=== PATIENT | male | born 1945 | race Caucasian/White ===

== ENCOUNTER → 2020-10-21 09:11 | Outpatient (BNVA) | payer MEDICARE, OTHER, SELFPAY | PROVIDERS: PCP Internal Medicine; Visit Provider Urology | DX: N40.0 Benign prostatic hyperplasia without lower urinary tract symptoms (principal); R35.1 Nocturia; R39.12 Poor urinary stream | CPT/HCPCS: 51798; 99212 ==

== ENCOUNTER 2020-11-08 07:19 | Day surgery (SDC) | payer MEDICARE, OTHER, SELFPAY ==
[2020-11-02 11:59] VITALS: BMI 30.7
[2020-11-02 12:02] VITALS: BP 133/72; PULSE 62; RESP 16; O2SAT 99
--- NOTE | 2020-11-02 12:31 | P.CONAN_ITS ---
Documented by User: Florecita Capellanney 11/04/20 14:32 HPI - Anesthesia Eval Consult details Narrative: 75yo M for Laser Ablation Prostate w/Green Light Aortic aneurysms stable per vascular (06/2020). Continue to monitor 6 to 8 months. Stable with cardiology (visit 09/2020) without change in tx. Return to clinic in 6 mo. (Pacer interr on chart) Stable with renal (visit 10/27/20). Baseline creat 1.3. No changes in meds/tx. Return to clinic 6 months. Coumadin for afib PMFSH Active Problems Active Problems: All Active Problems (Updated 11/02/20 @ 12:15 by Jackie García) Nocturia (Acute) BPH (benign prostatic hyperplasia) (Acute) Weak urinary stream (Acute) Past Medical History Medical History Atrial fibrillation BPH (benign prostatic hyperplasia) GERD (gastroesophageal reflux disease) Hx of kidney disease Hx of peripheral vascular disease Nocturia BERNABE treated with BiPAP Pacemaker Weak urinary stream Wears hearing aid in both ears Family History Family history of problems with anesthesia: No Surgical History Surgical History History of bronchoscopy History of esophagogastroduodenoscopy (EGD) Hx of appendectomy Hx of cholecystectomy Hx of colonoscopy History of Problems with Anesthesia: No Social History Social History Patient Tobacco Use Status: Former Tobacco user Quit Date: Tobacco use type: Cigar Use of substances other than those prescribed or required for medical reasons: No Are you DNR?: No Advance Directives: No Advance Directives Information Provided: No Advance Directives on File: No Narrative Narrative: No recent illness. >4 mets with 3 flights of stairs regularly Meds Allergies Allergy/AdvReac Type Severity Reaction Status Date / Time rivaroxaban [Xarelto] Allergy Unknown Unknown Verified 11/08/20 08:01 adhesive tape Allergy Intermediate Rash Uncoded 11/08/20 08:01 Home Medications Medication Instructions Recorded Confirmed Last Taken Type atorvastatin 10 mg tablet 10 mg PO DAILY 10/21/20 11/02/20 Unknown History fluticasone propionate 50 1 spray INTRANASAL BID PRN 10/21/20 11/02/20 Unknown History mcg/actuation nasal spray,suspension omeprazole 20 mg capsule,delayed 20 mg PO BID 10/21/20 11/02/20 11/08/20 06:00 History release warfarin 5 mg tablet 5 mg PO 5XW 10/21/20 11/02/20 10/31/20 20:00 History amlodipine 2.5 mg PO DAILY 11/02/20 11/02/20 Unknown History loratadine 10 mg PO DAILY 11/02/20 11/02/20 11/08/20 06:00 History metoprolol succinate 50 mg PO DAILY 11/02/20 11/02/20 11/08/20 06:00 History tamsulosin 0.4 mg PO BID 11/02/20 11/02/20 Unknown History warfarin 7.5 mg PO 2XW 11/02/20 11/02/20 Unknown History Exam Exam Date and Time: November 02, 2020 1231 Height,Weight and Vital Signs: Height 5 ft 11 in Weight 99.79 kg Last Vital Signs Pulse 62 11/02/20 12:02 Resp 16 11/02/20 12:02 BP 133/72 11/02/20 12:02 Pulse Ox 99 11/02/20 12:02 Pertinent Lab Results Pertinent Lab Results: 10/22/20 CMP: All WNL CBC: WBC 4.2, Hgb 13.7, Hct 41.7, Plt 135 (L) Narrative Narrative: EKG 11/2019 A-paced with Prolonged AV conduction No change from 07/2019 Pacer Interr 07/2020 (report on chart) Biotronik dual chamber pacer Mode: DDD - 60 Leads and device functioning appropriately. No VHR recorded. No AMS episodes Vpaced 1%, A paced 79% Battery longevity stable. Assessment and Plan Assessment Anesthesia Assessment: Anesthesia Plan Discussed and PAT Visit Documented by User: Shannon Ramirez 11/08/20 09:03 [facility] Past Medical History Medical History Atrial fibrillation BPH (benign prostatic hyperplasia) GERD (gastroesophageal reflux disease) Hx of kidney disease Hx of peripheral vascular disease Nocturia BERNABE treated with BiPAP Pacemaker Weak urinary stream Wears hearing aid in both ears Surgical History Surgical History History of bronchoscopy History of esophagogastroduodenoscopy (EGD) Hx of appendectomy Hx of cholecystectomy Hx of colonoscopy Social History Social History Patient Tobacco Use Status: Former Tobacco user Quit Date: Tobacco use type: Cigar Use of substances other than those prescribed or required for medical reasons: No Are you DNR?: No Advance Directives: No Advance Directives Information Provided: No Advance Directives on File: No Meds Allergies Allergy/AdvReac Type Severity Reaction Status Date / Time rivaroxaban [Xarelto] Allergy Unknown Unknown Verified 11/08/20 08:01 adhesive tape Allergy Intermediate Rash Uncoded 11/08/20 08:01 Home Medications Medication Instructions Recorded Confirmed Last Taken Type atorvastatin 10 mg tablet 10 mg PO DAILY 10/21/20 11/02/20 Unknown History fluticasone propionate 50 1 spray INTRANASAL BID PRN 10/21/20 11/02/20 Unknown History mcg/actuation nasal spray,suspension omeprazole 20 mg capsule,delayed 20 mg PO BID 10/21/20 11/02/20 11/08/20 06:00 History release warfarin 5 mg tablet 5 mg PO 5XW 10/21/20 11/02/20 10/31/20 20:00 History amlodipine 2.5 mg PO DAILY 11/02/20 11/02/20 Unknown History loratadine 10 mg PO DAILY 11/02/20 11/02/20 11/08/20 06:00 History metoprolol succinate 50 mg PO DAILY 11/02/20 11/02/20 11/08/20 06:00 History tamsulosin 0.4 mg PO BID 11/02/20 11/02/20 Unknown History warfarin 7.5 mg PO 2XW 11/02/20 11/02/20 Unknown History Exam Height,Weight and Vital Signs: Vital Signs Temp Pulse Resp BP Pulse Ox 11/08/20 08:01 97.1 F 68 18 129/93 H 96 Pertinent Lab Results Pertinent Lab Results: 11/08/20 EKG: Unusual P axis? extopic atrial rhythm with 2nd degree AV block. Premature supraventricular complexes. Rate 81 Lab Results 11/08/20 Range/Units 07:32 PT 12.8 (10.8-13.0) SEC INR 1.1 (0.9-1.1) Airway Mallampati Class: II TM Dist: >3cm Neck ROM: Full Heart: RRR Lungs: CTAB Assessment and Plan Assessment Anesthesia Assessment: Anesthesia Plan Discussed and Chart Reviewed Final Anesthetic Review NPO: Yes ASA Class: III Final Preanesthetic Review: No Changes in Pt Med Stat, Meds/Allgs Chart Reviewed, Consent Obtained/Reviewed and Anes Risks/Benef Reviewed Patient Risk: Intermediate Procedure Risk: Low Assessment/Block/Sedation in SS: Assess/Block/Sedation-SS Anesthetic Plan Anesthetic Plan: GA Disposition: Standard PACU
[2020-11-08] VITALS (7 sets, daily range): BP systolic 101–129; BP diastolic 63–93; PULSE 61–68; RESP 16–18; TEMP 36.1–36.2; O2SAT 94–96
--- NOTE | 2020-11-08 | ECG_ITS ---
Test Reason : PREOP Blood Pressure : / mmHG Vent. Rate : 081 BPM Atrial Rate : 085 BPM P-R Int : 146 ms QRS Dur : 094 ms QT Int : 386 ms P-R-T Axes : 181 -01 021 degrees QTc Int : 448 ms Unusual P axis, possible ectopic atrial rhythm with Premature supraventricular complexes competing with sinus rhythm (last 2 beats) Abnormal ECG No previous ECGs available Referred By: Florecita Salcedo Electronically Signed By:Al Lassiter
--- NOTE | 2020-11-08 07:36 | MHC.SHP ---
Pre-Procedural Eval Section A The patient is an INPATIENT: No Changes since office visit: No Cold of Flu in the past 2 weeks, No New Medical Problems, No Changes in Medication and No Patient answered all questions The History & Physical has been completed within 30 days and I have reviewed it.: Yes Section B Chief Complaint: benign prostate hyperplasia Allergies: Allergies Allergy/AdvReac Type Severity Reaction Status Date / Time rivaroxaban [Xarelto] Allergy Unknown Unknown Verified 11/02/20 12:18 adhesive tape Allergy Unknown Rash Uncoded 11/02/20 12:18 Plan Diagnosis/Plan: Unchanged (laser prostatectomy) I have reviewed the history and physical and performed a pertinent physical examination on my patient. No changes have occurred unless specified.
[2020-11-08 07:44] LABS: INTERNATIONAL NORM RATIO 1.1 (0.9-1.1); Prothrombin Time 12.8 SEC (10.8-13.0)
[2020-11-08] MEDS: levoFLOXacin 500 MG TABLET PO (08:19)
[2020-11-08] MEDS: 0.9 % Sodium Chloride 1,000 ML 100 ML IVCONT (08:45)
--- NOTE | 2020-11-08 09:24 | W.PM.OPN ---
Operative Note Operative Note Date of Service: 11/08/20 Narrative: PreOperative Diagnosis: Bladder outlet obstruction Post Operative Diagnosis: Bladder outlet obstruction Procedure: GreenLight laser enucleation of the prostate Surgeon: Dr Antony Rubio Anesthesia: General Indications for procedure: History of bladder outlet obstruction. Treated with alpha-rocio and other medications. Persistent symptoms. Cystoscopy revealed bilobar i encroachment. Recommendation for laser procedure of the prostate. Procedure: After informed consent was verified the patient was brought to the operating room and placed in a supine position. Anesthesia was administered per protocol. Patient was placed in modified dorsal lithotomy position and prepped and draped in a sterile fashion. Safety pause time-out was confirmed. Antibiotics have been given. Twenty-four Ugandan laser cystoscope was inserted per urethra. No abnormalities found the anterior posterior urethra. The bladder was filled on both ureteric orifices were seen in normal position away from our area of interest. Using a GreenLight laser settings of 80 w incisions were made at the 5 and 7 o'clock position. They were taken down and then laterally on each side. They were brought from the bladder neck down to the level of the veru. These defined the lateral aspects of the median lobe area. The median lobe was ablated and enucleated tissue removed. Once the median lobe area had been cleaned attention was directed to the lateral lobes. We started with the patient's left lateral lobe. Firstly the 05:00 o'clock groove was further developed. This was moved in the lateral position to undermine the tissue on the lateral side. Gradually we worked our way up the sidewall. There was not extensive tissue on the lateral aspect so we did not need to make multiple incisions. A similar procedure was repeated on the patient's right-hand side. When this was completed debris and pieces of prostate removed from the bladder. Both ureteric orifices were reviewed again in shown to be patent in away from any areas of energy damage. The apical area was reviewed in any stray ooze was controlled. A 22 Ugandan 30 cc balloon Garcia catheter was placed over stylet into the bladder. Clear efflux was obtained. 30 cc was placed in the balloon and gentle traction was placed. A snap was used to hold tension once the patient will be moved and transported. Once transportation its finish this novel be removed. A belladonna and opiate suppository was placed for postprocedure pain management. He tolerated procedure well was extubated in the operating and transferred in a stable condition to the recovery area. Total of 80,000 joules of energy. 10 minutes 46 seconds of lasing time Pathology: - Drains: Garcia catheter
== END 2020-11-08 10:45 | disposition home or self-care (01) ==
PROVIDERS: Nurse Practitioner; PCP Internal Medicine; Visit Provider Urology
PROC: (CPT 52648; principal; 2020-11-08 09:00)
DX: N40.1 Benign prostatic hyperplasia with lower urinary tract symptoms (principal); N13.8 Other obstructive and reflux uropathy; R39.12 Poor urinary stream; R35.1 Nocturia; I48.91 Unspecified atrial fibrillation; G47.33 Obstructive sleep apnea (adult) (pediatric); Z95.0 Presence of cardiac pacemaker; Z90.49 Acquired absence of other specified parts of digestive tract; Z87.891 Personal history of nicotine dependence; Z79.51 Long term (current) use of inhaled steroids; Z79.01 Long term (current) use of anticoagulants; Z79.899 Other long term (current) drug therapy
CPT/HCPCS: 52648; 36415; 85610; 93005; J2405; J3010

== ENCOUNTER → 2020-11-12 09:23 | Outpatient (BNVA) | payer MEDICARE, OTHER, SELFPAY | PROVIDERS: PCP Internal Medicine; Visit Provider Urology | DX: N40.0 Benign prostatic hyperplasia without lower urinary tract symptoms (principal) | CPT/HCPCS: 51700; 51798; 99212 ==

== ENCOUNTER → 2020-12-29 09:36 | Outpatient (BNVA) | payer MEDICARE, OTHER, SELFPAY | PROVIDERS: PCP Internal Medicine; Visit Provider Urology | DX: N40.1 Benign prostatic hyperplasia with lower urinary tract symptoms (principal); R35.1 Nocturia | CPT/HCPCS: 51798; 99212 ==

== ENCOUNTER 2023-04-25 14:58 | Outpatient (AMB) | payer MEDICARE, OTHER, SELFPAY ==
--- NOTE | 2023-04-25 15:01 | HO.NEPHOV ---
HPI HPI Comments History of Present Illness Details I had the privilege of seeing Arben in the office, accompanied by his , for chronic kidney disease and hypertension. His atrial fibrillation is reasonably well controlled on sotalol. He had cardioversion in the past. He closely follows up with Dr. Centeno for his aortic aneurysm. He sees Dr. Maria or is a iliac artery aneurysm. He is going to have an inguinal hernia on the right operated soon. He has no blood in the urine, edema or any urinary symptoms. His blood pressure has been well controlled. He does not take any nonsteroidal anti-inflammatory medications. He denies chest pain, shortness of breath, proximal nocturnal dyspnea, orthopnea, pedal edema or orthostatic symptoms. His blood pressure is currently well controlled on amlodipine and sotalol which he takes for his AFib. He had no other active complaints at the time of this office visit [facility] Medical History Atrial fibrillation BPH (benign prostatic hyperplasia) GERD (gastroesophageal reflux disease) Hx of kidney disease Hx of peripheral vascular disease Nocturia BERNABE treated with BiPAP Pacemaker Weak urinary stream Wears hearing aid in both ears Surgical History History of bronchoscopy History of esophagogastroduodenoscopy (EGD) Hx of colonoscopy Hx of appendectomy Hx of cholecystectomy Social History Patient Tobacco Use Status: Former Tobacco user Quit Date: Tobacco use type: Cigar Vital Signs 04/25/23 15:02 Height 6 ft Weight 226 lb 6 oz BMI 30.7 BP 112/80 Position Sitting Pulse 79 Pulse Source Pulse Oximeter Pulse Oximetry (%) 97 Oxygen Delivery Method Room Air Physical Exam Vital Signs: Last Vital Signs Pulse 79 04/25/23 15:02 BP 112/80 04/25/23 15:02 Pulse Ox 97 04/25/23 15:02 Oxygen Delivery Method Room Air 04/25/23 15:02 BMI result Body Mass Index 30.7 Const General: comfortable and no acute distress Orientation/consciousness: patient oriented x3 HEENT Head: Yes normocephalic Mouth: Normal oral and palatal mucosa present Eyes EOM: EOMs intact bilaterally Neck Neck: Yes supple Resp Auscultation: clear to auscultation bilaterally Cardio Jugular venous distension: no JVD Rate: regular rate GI Palpation (GI): Soft to palpation Auscultation: normal bowel sounds General: Yes no CVA tenderness Back/Spine/Pelvis Back: no CVA tenderness Skin General skin exam: no rashes or lesions noted Neuro General: patient oriented x3 and moves all extremities Extrem General: Yes no pedal edema Assessment & Plan Assessment & Plan (1) CKD (chronic kidney disease) stage 2, GFR 60-89 ml/min: Code(s): N18.2 - Chronic kidney disease, stage 2 (mild) (2) Renal stone: Code(s): N20.0 - Calculus of kidney Plan Arben has very mild CKD. He had history of renal infarction. He is on anticoagulation. He has history of atrial fibrillation and had undergone cardioversion in the past and is maintained on sotalol. His blood pressure is at goal. His renal functions are at baseline. He has unilateral renal stones. He does not have any hematuria. His uric acid has been 6.1. He has prostate issues and is maintained on tamsulosin. He is on statins which is tolerating well. There is no reservation for him to have his inguinal hernia operated. He closely follows up with Dr. Centeno and Dr. Maria. I did not make any medication changes. He maintains good hydration. He should cut back salt in the diet and animal protein. I ordered 24 hour urine collection for stone workup . All questions were answered. I may consider switching his amlodipine to hydrochlorothiazide at the next visit given nephrolithiasis. Follow-up given. Orders: Orders Calcium, 24 Hr Ur Today N18.2 - Chronic kidney disease, stage 2 (mild), N20.0 - Calculus of kidney Uric Acid, 24Hr Urine Group Today N18.2 - Chronic kidney disease, stage 2 (mild), N20.0 - Calculus of kidney Citric Acid 24hr Urine Today N18.2 - Chronic kidney disease, stage 2 (mild), N20.0 - Calculus of kidney Uric Acid Today N18.2 - Chronic kidney disease, stage 2 (mild), N20.0 - Calculus of kidney Sodium, 24Hr Urine Group Today N18.2 - Chronic kidney disease, stage 2 (mild), N20.0 - Calculus of kidney Oxalate, 24 Hr Today N18.2 - Chronic kidney disease, stage 2 (mild), N20.0 - Calculus of kidney Electrolytes Today N18.2 - Chronic kidney disease, stage 2 (mild), N20.0 - Calculus of kidney Blood Urea Nitrogen Today N18.2 - Chronic kidney disease, stage 2 (mild), N20.0 - Calculus of kidney Creatinine Today N18.2 - Chronic kidney disease, stage 2 (mild), N20.0 - Calculus of kidney Coding Level of Care Code Est Pt Level 4 (68315) Diagnoses CKD (chronic kidney disease) stage 2, GFR 60-89 ml/min N18.2 Renal stone N20.0 Results Reviewed Nephrology Results: No Data to Display
[2023-04-25 15:02] VITALS: BP 112/80; PULSE 79; O2SAT 97; BMI 30.7
== END 2023-04-25 15:49 | disposition home or self-care (01) ==
PROVIDERS: PCP Internal Medicine; Visit Provider Internal Medicine Nephrology
DX: N18.2 Chronic kidney disease, stage 2 (mild) (principal); N20.0 Calculus of kidney
CPT/HCPCS: 99214

== ENCOUNTER → 2023-04-25 14:58 | Outpatient (BNVA) | payer MEDICARE, OTHER, SELFPAY | PROVIDERS: PCP Internal Medicine; Visit Provider Internal Medicine Nephrology | DX: N18.2 Chronic kidney disease, stage 2 (mild) (principal); N20.0 Calculus of kidney | CPT/HCPCS: 99212 ==

== ENCOUNTER 2024-02-27 09:27 | Outpatient (AMB) | payer MEDICARE, OTHER, SELFPAY ==
--- NOTE | 2024-02-27 09:36 | HO.NEPHOV ---
Vital Signs 02/27/24 09:38 Height 6 ft Weight 232 lb 8 oz BMI 31.5 BP 132/82 Blood Pressure Location Lt brachial Position Sitting Pulse 63 Pulse Source Pulse Oximeter Pulse Oximetry (%) 99 Oxygen Delivery Method Room Air Intake Visit Reasons: 10M follow up- [facility] Required: No Accompanied by: Spouse Allergies rivaroxaban [Xarelto] Allergy (Unknown, Verified 02/27/24 09:39) Unknown adhesive tape Allergy (Intermediate, Uncoded 11/08/20 08:01) Rash HPI Comments Details: Arben was seen in the office for mild chronic kidney disease and hypertension. His atrial fibrillation is reasonably well controlled on sotalol. He had cardioversion in the past. He closely follows up with Dr. Centeno for his aortic aneurysm. He sees Dr. Maria or is a iliac artery aneurysm. He has no blood in the urine, edema or any urinary symptoms. His blood pressure has been well controlled. He does not take any nonsteroidal anti-inflammatory medications. He denies chest pain, shortness of breath, proximal nocturnal dyspnea, orthopnea, pedal edema or orthostatic symptoms. His blood pressure is currently well controlled on amlodipine and sotalol which he takes for his AFib. He had no other active complaints at the time of this office visit [facility] Medical History Atrial fibrillation BPH (benign prostatic hyperplasia) GERD (gastroesophageal reflux disease) Hx of kidney disease Hx of peripheral vascular disease Nocturia BERNABE treated with BiPAP Pacemaker Weak urinary stream Wears hearing aid in both ears Surgical History History of bronchoscopy History of esophagogastroduodenoscopy (EGD) Hx of colonoscopy Hx of appendectomy Hx of cholecystectomy Social History Patient Tobacco Use Status: Former Tobacco user Tobacco use type: Cigar Review of Systems Const All systems reviewed & are unremarkable except as noted in HPI and below Physical Exam Const General: comfortable and no acute distress Orientation/consciousness: patient oriented x3 HEENT Head: Yes normocephalic Mouth: Normal oral and palatal mucosa present Eyes EOM: EOMs intact bilaterally Neck Neck: Yes supple Resp Auscultation: clear to auscultation bilaterally Cardio Jugular venous distension: no JVD Rate: regular rate GI Palpation (GI): Soft to palpation Auscultation: normal bowel sounds General: Yes no CVA tenderness Back/Spine/Pelvis Back: no CVA tenderness Skin General skin exam: no rashes or lesions noted Neuro General: patient oriented x3 and moves all extremities Extrem General: Yes no pedal edema Results Reviewed Nephrology Results: No Data to Display Assessment & Plan Assessment & Plan (1) CKD (chronic kidney disease) stage 2, GFR 60-89 ml/min: Code(s): N18.2 - Chronic kidney disease, stage 2 (mild) Category: Medical (2) Renal stone: Code(s): N20.0 - Calculus of kidney Category: Medical Plan Arben has very mild CKD. He had history of renal infarction. He is on anticoagulation. He has history of atrial fibrillation and had undergone cardioversion in the past and is maintained on sotalol. His blood pressure is at goal. His renal functions are at baseline. He has unilateral renal stones. He does not have any hematuria. His uric acid has been 6.1. He has prostate issues and is maintained on tamsulosin. He is on statins which is tolerating well. There is no reservation for him to have his inguinal hernia operated. He closely follows up with Dr. Centeno and Dr. Maria. I did not make any medication changes. He maintains good hydration. He should cut back salt in the diet and animal protein. All questions were answered. I may consider switching his amlodipine to hydrochlorothiazide with time given stones. Follow-up given. Orders: Orders Blood Urea Nitrogen 1 Year N18.2 - Chronic kidney disease, stage 2 (mild), N20.0 - Calculus of kidney Electrolytes 1 Year N18.2 - Chronic kidney disease, stage 2 (mild), N20.0 - Calculus of kidney Creatinine 1 Year N18.2 - Chronic kidney disease, stage 2 (mild), N20.0 - Calculus of kidney Calcium 1 Year N18.2 - Chronic kidney disease, stage 2 (mild), N20.0 - Calculus of kidney Coding Level of Care Code Est Pt Level 4 (84012) Diagnoses CKD (chronic kidney disease) stage 2, GFR 60-89 ml/min N18.2 Renal stone N20.0
[2024-02-27 09:38] VITALS: BP 132/82; PULSE 63; O2SAT 99; BMI 31.5
== END 2024-02-27 09:53 | disposition home or self-care (01) ==
PROVIDERS: PCP Internal Medicine; Visit Provider Internal Medicine Nephrology
DX: I12.9 Hypertensive chronic kidney disease with stage 1 through stage 4 chronic kidney disease, or unspecified chronic kidney disease (principal); N18.2 Chronic kidney disease, stage 2 (mild); N20.0 Calculus of kidney
CPT/HCPCS: 99214

== ENCOUNTER → 2024-02-27 09:27 | Outpatient (BNVA) | payer MEDICARE, OTHER, SELFPAY | PROVIDERS: PCP Internal Medicine; Visit Provider Internal Medicine Nephrology | DX: I12.9 Hypertensive chronic kidney disease with stage 1 through stage 4 chronic kidney disease, or unspecified chronic kidney disease (principal); N18.2 Chronic kidney disease, stage 2 (mild); I48.91 Unspecified atrial fibrillation; N20.0 Calculus of kidney; Z79.01 Long term (current) use of anticoagulants | CPT/HCPCS: 99212 ==

== ENCOUNTER 2025-02-20 10:06 | Outpatient (AMB) | payer MEDICARE, OTHER, SELFPAY ==
--- NOTE | 2025-02-20 10:06 | HO.NEPHOV_ITS ---
Vital Signs 02/20/25 10:12 Height 6 ft Weight 219 lb 4 oz BMI 29.7 BP 110/70 Blood Pressure Location Lt brachial Position Sitting Pulse 66 Pulse Source Pulse Oximeter Pulse Oximetry (%) 98 Oxygen Delivery Method Room Air Intake Visit Reasons: CKD-Conf Long Winder Tender Required: No Accompanied by: Spouse Allergies rivaroxaban (Xarelto) Allergy (Unknown, Verified 02/20/25 10:11) Unknown adhesive tape Allergy (Intermediate, Uncoded 11/08/20 08:01) Rash HPI Comments Details: Arben was seen in the office for mild chronic kidney disease and hypertension. His atrial fibrillation is reasonably well controlled on sotalol. He had cardioversion in the past. He closely follows up with Dr. Centeno for his aortic aneurysm. He sees Dr. Maria or is a iliac artery aneurysm. He has no blood in the urine, edema or any urinary symptoms. His blood pressure has been well controlled. He does not take any nonsteroidal anti-inflammatory medications. He denies chest pain, shortness of breath, proximal nocturnal dyspnea, orthopnea, pedal edema or orthostatic symptoms. His blood pressure is currently well controlled on amlodipine and sotalol which he takes for his AFib. He has a diagnosis of pancreatic cancer and is going to undergo Whipples surgey in 2 weeks. He had no other active complaints at the time of this office visit [facility] Medical History Atrial fibrillation BPH (benign prostatic hyperplasia) GERD (gastroesophageal reflux disease) Hx of kidney disease Hx of peripheral vascular disease Nocturia BERNABE treated with BiPAP Pacemaker Weak urinary stream Wears hearing aid in both ears Surgical History History of bronchoscopy History of esophagogastroduodenoscopy (EGD) Hx of colonoscopy Hx of appendectomy Hx of cholecystectomy Social History Patient Tobacco Use Status: Former Tobacco user Tobacco use type: Cigar Review of Systems Const All systems reviewed & are unremarkable except as noted in HPI and below Physical Exam Vital Signs: Last Vital Signs Pulse 66 02/20/25 10:12 BP 110/70 02/20/25 10:12 Pulse Ox 98 02/20/25 10:12 Oxygen Delivery Method Room Air 02/20/25 10:12 BMI result Body Mass Index 29.7 Const General: comfortable and no acute distress Orientation/consciousness: patient oriented x3 HEENT Head: Yes normocephalic Mouth: Normal oral and palatal mucosa present Eyes EOM: EOMs intact bilaterally Neck Neck: Yes supple Resp Auscultation: clear to auscultation bilaterally Cardio Jugular venous distension: no JVD Rate: regular rate GI Palpation (GI): Soft to palpation Auscultation: normal bowel sounds General: Yes no CVA tenderness Back/Spine/Pelvis Back: no CVA tenderness Skin General skin exam: no rashes or lesions noted Neuro General: patient oriented x3 and moves all extremities Extrem General: Yes no pedal edema Assessment & Plan Assessment & Plan (1) CKD (chronic kidney disease) stage 2, GFR 60-89 ml/min: Code(s): N18.2 - Chronic kidney disease, stage 2 (mild) Category: Medical (2) Renal stone: Code(s): N20.0 - Calculus of kidney Category: Medical Plan Arben has very mild CKD. He had history of renal infarction. He is on anticoagulation. He has history of atrial fibrillation and had undergone cardioversion in the past and is maintained on sotalol. His blood pressure is at goal. His renal functions are at baseline. He has H/O unilateral renal stones. He does not have any hematuria. He is on statins which is tolerating well. He closely follows up with Dr. Centeno and Dr. Maria. I did not make any medication changes. He maintains good hydration. He should cut back salt in the diet and animal protein. All questions were answered. I may consider switching his amlodipine to hydrochlorothiazide with time given stones. Follow- up given. Orders: Orders Protein Creatinine Ratio, Ur 1 Year N18.2 - Chronic kidney disease, stage 2 (mild), N20.0 - Calculus of kidney Electrolytes 1 Year N18.2 - Chronic kidney disease, stage 2 (mild), N20.0 - Calculus of kidney Creatinine 1 Year N18.2 - Chronic kidney disease, stage 2 (mild), N20.0 - Calculus of kidney Calcium 1 Year N18.2 - Chronic kidney disease, stage 2 (mild), N20.0 - Calculus of kidney Uric Acid 1 Year N18.2 - Chronic kidney disease, stage 2 (mild), N20.0 - Calculus of kidney Blood Urea Nitrogen 1 Year N18.2 - Chronic kidney disease, stage 2 (mild), N20.0 - Calculus of kidney Coding Level of Care Code Est Pt Level 4 (97097) Diagnoses CKD (chronic kidney disease) stage 2, GFR 60-89 ml/min N18.2 Renal stone N20.0
[2025-02-20 10:12] VITALS: BP 110/70; PULSE 66; O2SAT 98; BMI 29.7
--- OUTSIDE RECORDS SUMMARY | 2025-02-20 10:56 | XMS_ITS | Patient Health Record ---
Author Organization [facility] Address [address] [place] [address] Care Team Providers Care Social Work Program Coordinator Name Role Phone Baylee JAY, Farideh Primary Care Provider Napoleon Byrne MD, Hussein Unavailable Reason For Referral No Information Medications Medication SIG (Take, Route, Frequency, Duration) Notes Start Date End Date Status Atenolol *Please review a nd pick correct strength-formulation from [facility] options. If intended option is not shown, discontinue and re-order from Quick Search* Active RANITIDINE *Please review f or potential replacement for e-prescription and drug interaction check* Active Plan Of Treatment No Information Insurance Providers Payer Name Payer Address Payer Phone Subscriber Number Group Number Insured Name Patient Relationship to Insured Coverage Start Date Coverage End Date [facility] [address] [place] [address] [phone] [id number] Arben Mustafa Self - patient is the insured Medical (General) History Medical History History ICD Code hypertension acid reflux
--- OUTSIDE RECORDS SUMMARY | 2025-02-20 10:56 | XMS_ITS | Patient Health Record ---
Author Organization [facility] cassie Hancock Address [address] [place] [address] Care Team Providers Care Butcher Supervisor Name Role Phone Ismael Dickey MD Primary Care Provider Kiesha Acosta Unavailable [phone] Allergies Allergen (clinical drug ingredient) Drug/Non Drug Allergy documented on EMR Reaction Allergy Type Onset Date Status Adhesive Unknown Allergy Active Reason For Referral No Information Medications Medication SIG (Take, Route, Frequency, Duration) Notes Start Date End Date Status Warfarin Sodium 5 MG as directed Active Tamsulosin HCl Unkno wn Sotalol HCl Unknown Omeprazole 20 MG as directed Orally t wice a day Active Atorvastatin Calcium 10 MG as directed Active Claritin 10 MG as directed Act rob amLODIPine Besylate 2.5 MG 1 tablet Oral ly Once a day Active Social History Tobacco Use: Social History Observation Description Date Details (start date - stop date) Former Smoker NA - NA Tobacco Use/Smoking Question Answer Notes Are you a: former smoker Additional Findings: Tobacco Non-User Current no n-smoker Alcohol Screen Question Answer Notes Did you have a drink containing alcohol in the p ast year? No Points 0 Interpretation Negative Tobacco use other than smoking: Question Answer Notes Are you an other tobacco user? No Problems Problem Type SNOMED Code ICD Code Onset Dates Problem Status W/U Status Risk Notes Problem Tinea unguium (552852768) Tinea unguium (B35.1) Active confirmed Plan Of Treatment No Information Insurance Providers Payer Name Payer Address Payer Phone Subscriber Number Group Number Insured Name Patient Relationship to Insured Coverage Start Date Coverage End Date Medicare [employer] [address] [place] [address] [id number] Arben Mustafa Self - patient is the insured [facility] [employer] [address] [place] [address] [id number] Arben Mustafa Self - patient is the insured Medical (General) History Medical History History ICD Code Gall bladder problems Kidney disease Reflux Stroke Measles Mumps Chicken pox covid-19 High blood pressure Surgical History Surgery Date(Month/Year) liver abcess 1976 gall stones 1988
--- OUTSIDE RECORDS SUMMARY | 2025-02-20 10:56 | XMS_ITS | Patient Health Record ---
Author Organization [facility] Address [address] [place] [address] Care Team Providers Care Guidance Counselor Name Role Phone Koffi Nobles Primary Care Provider Adelita Ferrer Unavailable [phone] Reason For Referral No Information Plan Of Treatment No Information Insurance Providers Payer Name Payer Address Payer Phone Subscriber Number Group Number Insured Name Patient Relationship to Insured Coverage Start Date Coverage End Date [facility] [address] [place] [address] [id number] ANA LAURA CURIEL Self - patient is the insured
--- OUTSIDE RECORDS SUMMARY | 2025-02-20 10:56 | XMS_ITS | Clinical Summary ---
Author Organization [facility] [address] [place] [address] Phone Care Team Providers Care Restaurant Busser Name Role Phone Ismael Dickey MD Primary Care Provider [phone] Allergies Active Allergy Reactions Criticality Noted Date Comments Adhesive Tape Other (see comments) 10/27/2020 Medications albuterol HFA (PROVENTIL HFA;VENTOLIN HFA) 108 (90 Base) MCG/ACT inhaler 2 puffs by Other route if needed Active amLODIPine (NORVASC) 2.5 MG tablet Take 1 tablet by mouth 1 (one) time each day Active atorvastatin (LIPITOR) 10 MG tablet Take 1 tablet by mouth 1 (one) time each day Active fluticasone (FLONASE) 50 MCG/ACT nasal spray Administer 1 spray into each nostril 1 (one) time each day Active omeprazole OTC (PriLOSEC OTC) 20 MG EC tablet Take 1 tablet by mouth 1 (one) time each day Active warfarin (COUMADIN) 5 MG tablet Take 1 tablet by mouth 1 (one) time each day Active omeprazole (PriLOSEC) [address] capsule Take 1 capsule by mouth 1 (one) time each day Active sotalol (BETAPACE) 80 MG tablet Take 80 mg by mouth 2 (two) times a day Active loratadine (CLARITIN) 10 MG tablet Take 10 mg by mouth 1 (one) time each day Active triamcinolone (KENALOG) 0.025 % cream Apply topically if needed Active Active Problems Problem Noted Date Diagnosed Date Anemia 06/07/2021 Stage 3a chronic kidney disease 10/27/2020 Hypertension 11/14/2017 Resolved Problems Problem Noted Date Diagnosed Date Resolved Date Abdominal aortic aneurysm 06/07/2021 Allergic rhinitis 06/07/2021 06/07/2021 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 Benign prostatic hyperplasia 06/07/2021 06/07/2021 Overview (06/07/2021): Status post green laser surgery October 2020. Body mass index 25-29 - overweight 06/07/2021 06/07/2021 Bronchospasm 06/07/2021 06/07/2021 Difficulty passing urine 06/07/2021 Inflammatory dermatosis 06/07/202105/21 Eczema 06/07/2021 06/07/2021 H/O: kidney disease 06/07/2021 06/07/19 Overview (06/07/2021): L infarct History of colonoscopy 06/07/202106/07 Overview (06/07/2021): 2017; repeat ; repeat 2020 Internal hemorrhoids 06/07/2021 022 Overview (06/07/2021): colo 2011 Lipoma 06/07/2021 06/07/2021 Liver function tests outside reference range 2 06/07/2021 Lumbar radiculopathy 06/07/2021 022 Mild persistent asthma 06/07/202106/07 Obese class I 06/07/2021 06/07/2021 Obstructive sleep apnea syndrome 06/07/2021 06/07/2021 Pain in thumb 06/07/2021 06/07/2021 Platelet count below reference range 06/07/2021 06/07/2021 Retinal disorder 06/07/2021 06/07/2021 Overview (06/07/2021): 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 Thyroid hormone tests outside reference range 06/07/19 22 06/07/2021 Transient global amnesia 06/07/2021 Tremor 06/07/2021 06/07/2021 Vasovagal symptom 06/07/2021 06/07/2021 Ventricular premature complex 06/07/2021 06/07/2021 Hyperlipidemia 11/08/2016 06/07/2021 Cardiac pacemaker in situ 08/13/2015 Venous retinal branch occlusion 03/06/2013 06/07/2021 Overview (10/27/2020): Venous retinal branch occlusion Gastroesophageal reflux disease 11/14/2012 06/07/2021 Overview (10/27/2020): Gastroesophageal reflux disease Irregular heart beat 11/14/2012 022 Overview (10/27/2020): irregular heartbeat Immunizations Immunization Administration Dates Next Due Influenza Whole 02/14/2021,12/23/2019,03/14/2019 Pfizer SARS-COV-2 02/21/2021,06/24/2020,06/03/19 21 Pneumococcal Conjugate 13-Valent 01/20/2016,09/0 05/2015 Pneumococcal Polysaccharide 02/05/2012 Shingrix 10/01/2017,08/03/2017 Tdap 11/01/2015,12/19/2010 Zoster 04/09/2012,10/31/2005 Family History Medical History Relation Comments Heart disease Father Relation Status Comments Father Mother Social History Tobacco Use Types Packs/Day Years Used Date Smoking Tobacco: Never Smokeless Tobacco: Never Tobacco Cessation:Counseling Given: Not Answered Alcohol Use Standard Drinks/Week Comments Yes 0 (1 standard drink = 0.6 oz pure alcohol) Alcoholic Drinks/day: Occasional social drink Sex and Gender Information Value Date Recorded Sex Assigned at Not on file Legal Sex Male 4:46 PM EST Gender Identity Not on file Sexual Orientation Not on file Last Filed Vital Signs Vital Sign Reading Time Taken Comments Blood Pressure 110/80 04/26/2022 1:34 PM EST Pulse 82 04/26/2022 1:34 PM EST Temperature - - Respiratory Rate - - Oxygen Saturation 98% 04/22/2021 2:16 PM EST Inhaled Oxygen Concentration - - Weight 102 kg (225 lb) 04/26/2022 1:34 PM EST Height 182.9 cm (6') 03/26/2020 12:00 PM EST Body Mass Index 30.52 03/26/2020 12:00 PM EST Plan of Treatment Health Maintenance Due Date Last Done Comments Influenza Vaccine (#1) 2025 , 02/21/2021, 02/14/2021, Additional history exists Pneumococcal Vaccine: 50+ Years Completed 03/05/2016, 01/20/2016, 01/20/2016, Additional history exists Pneumococcal Vaccine: Peds (0 to 5 Years) and At-Risk Patients (6 to 49 Years) Discontinued 03/05/2016, 01/20/2016, 01/20/2016, Additional history exists Colorectal Cancer Screening: Colonoscopy Discontinued 06/07/2021 Hepatitis B Vaccine Aged Out No longe r eligible based on patient's age to complete this topic Insurance Medicare [facility] Care Teams Restaurant Busser Relationship Specialty Start Date End Date Ismael Dickey MD [facility] ALVAR[facility] [employer] [address] [place] [address] DENNIS ALVARADO [place] PCP - General 05/31/20
--- OUTSIDE RECORDS SUMMARY | 2025-02-20 10:56 | XMS_ITS | Clinical Summary ---
Author Organization [facility] Address [address] [place] [phone] Phone Care Team Providers Care Television Schedule Coordinator Name Role Phone Ismael Dickey MD Primary Care Provider [phone] Allergies Active Allergy Reactions Criticality Noted Date Comments Adhesive Rash Low 11/14/2012 Medications OMEPRAZOLE ORAL Take by mouth 2 (two) times a day. Active SOTALOL HCL (SOTALOL ORAL) Take by mouth. Active TAMSULOSIN HCL (TAMSULOSIN ORAL) Take by mouth. Activ e WARFARIN SODIUM (WARFARIN ORAL) Take by mouth. Active triamcinolone acetonide 0.5 % cream Apply topically 3 (three) times a day. Active fluticasone propionate (FLONASE) 50 mcg/actuation nasal spray 1 spray by Nasal route daily. Active atorvastatin (LIPITOR) 10 MG tablet Take 10 mg by mouth daily. Active amLODIPine (NORVASC) 2.5 MG tablet Take 2.5 mg by mouth daily. Active raNITIdine (ZANTAC) 150 MG tablet Take 150 mg by mouth 2 (two) times a day. Active sotalol (BETAPACE) 80 MG tablet Take 80 mg by mouth 2 (two) times a day. Active Active Problems Problem Noted Date Diagnosed Date Hypertension 11/14/2017 Hyperlipidemia 11/08/2016 Venous retinal branch occlusion 03/06/2013 Overview (07/11/2014): Venous retinal branch occlusion Gastroesophageal reflux disease 11/14/2012 Overview (07/11/2014): Gastroesophageal reflux disease Irregular heartbeat 11/14/2012 Overview (07/11/2014): irregular heartbeat Family History Medical History Relation Comments Prostate cancer Father prostate cancer Uncoded Family History Father Heart pro blem Breast cancer Sister breast cancer Angina Unspecified Angina; ? father - carried nitroglycerin Relation Status Comments Father Sister Unspecified Social History Tobacco Use Types Packs/Day Years Used Date Smoking Tobacco: Never Comments:Quit smokin05/21 Alcohol Use Standard Drinks/Week Comments Yes 0 (1 standard drink = 0.6 oz pur e alcohol) Education Answer Date Recorded Are you interested in more education? Not on [place] e 10/01/2022 Are you concerned about learning? Not on file 10/01/2022 No 10/01/2022 No 10/01/2022 Digital Access Answer Date Recorded No 10/15/2022 No 10/15/2022 No 10/15/2022 Reliable internet access at home? Not on file 10/15/2022 Device with a working camera? Not on file Sex and Gender Information Value Date Recorded Sex Assigned at Not on file Legal Sex Male 5:04 PM EST Gender Identity Not on file Sexual Orientation Not on file Plan of Treatment Health Maintenance Due Date Last Done Comments Adult Td,Tdap Booster 1945 BLOOD PRESSURE 1946 LIPID PANEL 1946 DEPRESSION SCREENING 1958 HEPATITIS C SCREENING 01/11/1964 PNEUMOCOCCAL VACCINES (50+ years) (1 of 1 - PCV) 01/11/1996 ZOSTER VACCINES (1 of 2) 01/11/1996 RSV VACCINE (1 - 1-dose 75+ series) 2021 INFLUENZA VACCINE (#1) 2024 COVID-19 VACCINE (3 - 2024-2 6 season) 2025 06/24/2020, 06/03/2020 SMOKING STATUS SCREENING (On ce After 26 Yrs) Completed 11/08/2016 HEPATITIS A VACCINES Aged Out No long er eligible based on patient's age to complete this topic HIB VACCINES Aged Out No longer eligi ble based on patient's age to complete this topic MENINGOCOCCAL VACCINES (ACWY) Aged Out No longer eligible based on patient's age to complete this topic MENINGOCOCCAL VACCINES (B) Aged Out N o longer eligible based on patient's age to complete this topic Medical Devices Not on file Insurance MEDICARE PART A & B [employer] MEDICARE SUPPLEMENT [facility] Address: [facility] [address] [place] [address] MEDICARE PART A & B [employer] MEDICARE SUPPLEMENT [facility] Address: [address] [address] MEDICARE PART A & B Member Subscriber Plan / Payer (Ef fective 2010-Present) Name:Arben Mustafa Maye Member ID:[id number] Relation to Subscriber:Self Name:Arben Mustafa Subscriber ID:[id number] Payer ID:[id number] Group ID:Not on file Type:Medicare Address: [employer] [address] [place] [address] [employer] MEDICARE SUPPLEMENT [facility] Address: [address] [address] MEDICARE PART A & B Member Subscriber Plan / Payer (Ef fective 2010-Present) Name:Arben Mustafa Member ID:[id number] Relation to Subscriber:Self Name:Arben Mustafa Subscriber ID:[id number] Payer ID:[id number] Group ID:Not on file Type:Medicare Address: [employer] [address] [place] [address] FOR LIFE MEDICARE SUPPLEMENT [facility] Address: [address] [place] [address] MEDICARE PART A & B Member Subscriber Plan / Payer (Ef fective 2010-Present) Name:Arben Mustafa Member ID:[id number] Relation to Subscriber:Self Name:Arben Mustafa Subscriber ID:[id number] Payer ID:[id number] Group ID:Not on file Type:Medicare Address: [facility] [employer] [facility] [address] [address] FOR LIFE MEDICARE SUPPLEMENT [facility] Address: [address] [address] MEDICARE PART A & B FOR LIFE MEDICARE SUPPLEMENT MEDICARE PART A & B [facility] FOR LIFE MEDICARE SUPPLEMENT MEDICARE PART A & B FOR LIFE MEDICARE SUPPLEMENT [facility] Address: [address] [address] MEDICARE PART A & B FOR LIFE MEDICARE SUPPLEMENT [facility] Address: [address] [address] Care Teams Television Schedule Coordinator Relationship Specialty Start Date End Date Ismael Dickey MD [address] [place] [address] [place] [address] PCP - General Internal Medicine 10/16/17 Additional Source Comments The information contained in this document represents components of the legal health record. It is not the complete legal health record.[facility]
== END 2025-02-20 10:34 | disposition home or self-care (01) ==
LOC: HO.HKA 10:07
PROVIDERS: PCP Internal Medicine; Visit Provider Internal Medicine Nephrology
DX: N18.2 Chronic kidney disease, stage 2 (mild) (principal); N20.0 Calculus of kidney
CPT/HCPCS: 99214

== ENCOUNTER → 2025-02-20 10:06 | Outpatient (BNVA) | payer MEDICARE, OTHER, SELFPAY | PROVIDERS: PCP Internal Medicine; Visit Provider Internal Medicine Nephrology | DX: N18.2 Chronic kidney disease, stage 2 (mild) (principal); N20.0 Calculus of kidney | CPT/HCPCS: 99212 ==